=== PATIENT | male | born 1995 | race American Indian/Alaskan Native ===

== ENCOUNTER 2021-12-25 06:18 | Emergency (ER) | payer SELFPAY ==
[2021-12-25] MEDS ORDERED: ACETAMINOPHEN 325 MG TAB PO ONE (06:23)
[2021-12-25 08:08] VITALS: BP 110/77
[2021-12-25] MEDS ORDERED: IBUPROFEN 800 MG TAB PO ONE (08:23)
[2021-12-25 09:56] LABS: Bilirubin,Urine NEG (Negative); Blood,Urine LG (Negative); Color,Urine Amber (Yellow)
[2021-12-25] MEDS ORDERED: SODIUM CHLORIDE 0.9% 1000 ML 1,000 ML IV ONE (10:05)
[2021-12-25 10:09] LABS: Bacteria,Urine 2+ /HPF (Negative); Mucus,Urine FEW /HPF
[2021-12-25 10:12] LABS: WBC,Urine > 182.0 /HPF (0.0-6.0)
[2021-12-25 10:27] LABS: Hematocrit 40.1 % (35.5-45.6); Hemoglobin 13.5 gm/dl (11.8-15.2); Mean Corpuscular HGB Conc 34 % (32-34); Mean Corpuscular Volume 99 fl (84-94); Red Blood Count 4.05 M/mm3 (3.65-5.03); Red Cell Distribution Width 12.4 % (13.2-15.2)
--- NOTE | 2021-12-25 10:30 | XRay Report ---
CHEST 2 VIEWS INDICATION / CLINICAL INFORMATION: bodyache. Fever, cough COMPARISON: None available. FINDINGS: SUPPORT DEVICES: None. HEART / MEDIASTINUM: No significant abnormality. LUNGS / PLEURA: No significant pulmonary or pleural abnormality. No pneumothorax. ADDITIONAL FINDINGS: No significant additional findings. IMPRESSION: 1. No acute findings. Signer Name: Lyndon Prakash Jr, MD Signed: 12/25/2021 10:25 AM Workstation Name: [id number]
[2021-12-25 10:44] LABS: Platelet Count 125 K/mm3 (140-440)
[2021-12-25 10:50] LABS: Alanine Aminotransferase 22 units/L (7-56); BUN/Creatinine Ratio 10; Blood Urea Nitrogen 14 mg/dL (9-20); Calcium 8.9 mg/dL (8.4-10.2); Hemolysis Index 7
[2021-12-25] MEDS ORDERED: LIDOCAINE-MPF (1%) 10 MG/1 ML VIAL 5 ML INFILTRATI ONE (10:51)
--- NOTE | 2021-12-25 10:51 | Emergency Department Report ---
ED Fever HPI - General Chief Complaint: Fever Stated Complaint: BODY ACHES - History of Present Illness Initial Comments: 26-year-old male presents to the ED complaining of fever chills body ache x3 days. Patient states that when he went to the bathroom in the ED that he noticed some hematuria. Denies any penile discharge. He states some pelvis pain. He denies any prior medication. Patient is alert and oriented x3. No acute distress noted. No ill appearance noted. ED Review of Systems ROS: Stated complaint: BODY ACHES Other details as noted in HPI Constitutional: denies: chills, fever Eyes: denies: eye pain, eye discharge, vision change ENT: denies: ear pain, throat pain Respiratory: denies: cough, shortness of breath, wheezing Cardiovascular: denies: chest pain, palpitations Endocrine: no symptoms reported Gastrointestinal: denies: abdominal pain, nausea, diarrhea Genitourinary: denies: urgency, dysuria Musculoskeletal: denies: back pain, joint swelling, arthralgia Skin: denies: rash, lesions Neurological: denies: headache, weakness, paresthesias Psychiatric: denies: anxiety, depression Hematological/Lymphatic: denies: easy bleeding, easy bruising ED Past Medical Hx - Medications Home Medications: Home Medications Medication Instructions Recorded Confirmed Last Taken Type Dicyclomine [Bentyl] 20 mg PO QID 5 Days #20 tablet 12/25/21 Unknown Rx Ibuprofen [Motrin] 800 mg PO Q8HR PRN 15 Days #30 12/25/21 Unknown Rx tablet Promethazine [Phenergan] 25 mg PO Q6HR PRN 15 Days #30 tab 12/25/21 Unknown Rx levoFLOXacin [Levaquin] 750 mg PO QDAY 7 Days #7 tablet 12/25/21 Unknown Rx ED Physical Exam - General Limitations: No Limitations General appearance: alert, in no apparent distress - Head Head exam: Present: atraumatic, normocephalic - Eye Eye exam: Present: normal appearance - ENT ENT exam: Present: mucous membranes moist - Neck Neck exam: Present: normal inspection - Respiratory Respiratory exam: Present: normal lung sounds bilaterally. Absent: respiratory distress - Cardiovascular Cardiovascular Exam: Present: regular rate, normal rhythm. Absent: systolic murmur, diastolic murmur, rubs, gallop - GI/Abdominal GI/Abdominal exam: Present: soft, normal bowel sounds - Rectal Rectal exam: Present: deferred - Extremities Exam Extremities exam: Present: normal inspection - Back Exam Back exam: Present: normal inspection - Neurological Exam Neurological exam: Present: alert, oriented X3 - Psychiatric Psychiatric exam: Present: normal affect, normal mood - Skin Skin exam: Present: warm, dry, intact, normal color. Absent: rash ED Course Vital Signs 12/25/21 12/25/21 12/25/21 06:20 08:07 09:26 Temperature 102.9 F H 100.8 F H 100.4 F H Pulse Rate 115 H 96 H Respiratory 18 16 Rate Blood Pressure 128/67 Blood Pressure 110/77 [Left] O2 Sat by Pulse 100 100 Oximetry 12/25/21 12/25/21 10:20 14:17 Temperature 98.6 F 98.6 F Pulse Rate 90 Respiratory 16 Rate Blood Pressure Blood Pressure 110/77 [Left] O2 Sat by Pulse 100 Oximetry ED Medical Decision Making - Lab Data Result diagrams: 12/25/21 09:45 12/25/21 09:45 - Radiology Data [facility] [address] [place] [address] Cat Scan Report Signed Patient: JACQUELINE ROSARIO MR#: [id number] : 1995 Acct:[id number] Age/Sex: 26 / M ADM Date: 12/25/21 Loc: ED Attending Dr: Ordering Physician: PIA GEE Date of Service: 12/25/21 Procedure(s): CT abdomen pelvis wo/w con Accession Number(s): [id number] cc: PIA GEE CT ABDOMEN AND PELVIS WITHOUT AND WITH CONTRAST INDICATION: RRU quad pain and pelvis pain. TECHNIQUE: Axial CT images were obtained through the abdomen and pelvis before and after 100 cc Omni [address] scans at this location are performed using CT dose reduction for ALARA by means of automated exposure control. COMPARISON: None available. FINDINGS: LOWER CHEST: No significant abnormality. LIVER: No significant abnormality. GALLBLADDER: No significant abnormality. BILE DUCTS: No significant abnormality. PANCREAS: No significant abnormality. SPLEEN: No significant abnormality. ADRENALS: No significant abnormality. RIGHT KIDNEY and URETER: No significant abnormality. LEFT KIDNEY and URETER: No significant abnormality. STOMACH and SMALL BOWEL: No significant abnormality. COLON: No significant abnormality. APPENDIX: No significant abnormality. PERITONEUM: No free fluid. No free air. No fluid collection. LYMPH NODES: No significant adenopathy. AORTA and ARTERIES: No significant abnormality. IVC and VEINS: No significant abnormality. URINARY BLADDER: Moderately thickened urinary bladder wall. REPRODUCTIVE ORGANS: Peripherally enhancing hypodense lesion within the prostate worrisome for prostate abscess measuring 2.8 x 3.6 cm series 5 image 163 ADDITIONAL FINDINGS: None. SKELETAL SYSTEM: No significant abnormality. IMPRESSION: 1. Thick walled urinary bladder characteristic for cystitis. 2. Prostatitis with probable prostatic abscess. Signer Name: Tevin Richardson MD Signed: 12/25/2021 1:46 PM Workstation Name: [id number] Transcribed By: TL Dictated By: Tevin Richardson MD Electronically Authenticated By: Tevin Richardson MD Signed Date/Time: 12/25/21 1346 DD/ 1341 TD/TT: [place] [address] XRay Report Signed Patient: JACQUELINE ROSARIO MR#: [id number] : 1995 Acct:[id number] Age/Sex: 26 / M ADM Date: 12/25/21 Loc: ED Attending Dr: Ordering Physician: PIA GEE Date of Service: 12/25/21 Procedure(s): XR chest routine 2V Accession Number(s): [id number] cc: PIA GEE Fluoro Time In Minutes: CHEST 2 VIEWS INDICATION / CLINICAL INFORMATION: bodyache. Fever, cough COMPARISON: None available. FINDINGS: SUPPORT DEVICES: None. HEART / MEDIASTINUM: No significant abnormality. LUNGS / PLEURA: No significant pulmonary or pleural abnormality. No pneumothorax. ADDITIONAL FINDINGS: No significant additional findings. IMPRESSION: 1. No acute findings. Signer Name: Lyndon Prakash Jr, MD Signed: 12/25/2021 10:25 AM Workstation Name: [id number] Transcribed By: TTR Dictated By: LYNDON PRAKASH JR, MD Electronically Authenticated By: LYNDON PRAKASH JR, MD Signed Date/Time: 12/25/21 1025 DD/ 1025 TD/TT: - Medical Decision Making 26-year-old male presents to the ED complaining of fever chills body ache x3 days. Patient states that when he went to the bathroom in the ED that he noticed some hematuria. Denies any penile discharge. He states some pelvis pain. He denies any prior medication. Patient is alert and oriented x3. No acute distress noted. No ill appearance noted. Urinalysis pertinent for a urinary tract infection Rechecked the patient is resting quietly quietly and comfortable and feeling better. I discussed the results of diagnostic study, my clinical impression and the plan for further treatment with the patient. Patient agrees with plan and discharge at this present time. All question addressed. I have given the patient instruction regarding a diagnosis ,expectation ,follow- up and return precaution. I explained to the patient that emergent condition may arise and to return to the ED for new worsen and any new persisting condition. I have explained the importance of following up with the primary care physician or referral physician listed below has instructed. The patient verbalized understanding of discharge instruction. Abnormal Lab Results 12/25/21 12/25/21 12/25/21 09:42 09:45 09:45 WBC 10.4 RBC 4.05 Hgb 13.5 Hct 40.1 MCV 99 H MCH 33 H MCHC 34 RDW 12.4 L Plt Count 125 L Sodium 136 L Potassium 3.7 Chloride 97.4 L Carbon Dioxide 28 Anion Gap 14 BUN 14 Creatinine 1.4 H Estimated GFR > 60 BUN/Creatinine Ratio 10 Glucose 100 Calcium 8.9 Total Bilirubin 2.70 H AST 34 ALT 22 Alkaline Phosphatase 74 Total Protein 6.6 Albumin 4.0 Albumin/Globulin Ratio 1.5 Urine Color [place] Urine Turbidity Clear Urine pH 8.0 H Ur Specific [place] 1.016 Urine Protein 100 mg/dl Urine Glucose (UA) Neg Urine Ketones Neg Urine Blood Lg Urine Nitrite Neg Urine Bilirubin Neg Urine Urobilinogen 4.0 Ur Leukocyte Esterase Lg Urine WBC (Auto) > 182.0 H Urine RBC (Auto) 86.0 U Epithel Cells (Auto) 3.0 Urine Bacteria (Auto) 2+ Urine Mucus Few Urine Yeast (Budding) 3+ Critical care attestation.: If time is entered above; I have spent that time in minutes in the direct care of this critically ill patient, excluding procedure time. ED Disposition Clinical Impression: Acute urinary tract infection Disposition: 01 HOME / SELF CARE / HOMELESS Is pt being admited?: No Does the pt Need Aspirin: No Condition: Stable Instructions: Urinary Tract Infection, Adult, [id number], Antibiotic Medicine, Adult Additional Instructions: Take medication as prescribed Return to ED for any worsening Prescriptions: Dicyclomine [Bentyl] 20 mg PO QID 5 Days #20 tablet levoFLOXacin [Levaquin] 750 mg PO QDAY 7 Days #7 tablet Ibuprofen [Motrin] 800 mg PO Q8HR PRN 15 Days #30 tablet PRN Reason: Fever >101 Promethazine [Phenergan] 25 mg PO Q6HR PRN 15 Days #30 tab PRN Reason: Nausea Referrals: PRIMARY CARE, [Primary Care Provider] - 3-5 Days [facility] [Provider Group] - 3-5 Days Forms: Work/School Release Form(ED) Time of Disposition: 14:09
[2021-12-25] MEDS ORDERED: ONDANSETRON 4 MG/2 ML INJ IV ONE (10:52)
[2021-12-25] MEDS ORDERED: cefTRIAXone/NS 1 GM/50 ML 1 GM/50 ML BAG IV ONE (10:56)
--- NOTE | 2021-12-25 13:51 | Cat Scan Report ---
CT ABDOMEN AND PELVIS WITHOUT AND WITH CONTRAST INDICATION: RRU quad pain and pelvis pain. TECHNIQUE: Axial CT images were obtained through the abdomen and pelvis before and after 100 cc Omni 300 IV cont rast. All CT scans at this location are performed using CT dose reduction for ALARA by means of auto mated exposure control. COMPARISON: None available. FINDINGS: LOWER CHEST: No significant abnormality. LIVER: No significant abnormality. GALLBLADDER: No significant abnormality. BILE DUCTS: No significant abnormality. PANCREAS: No significant abnormality. SPLEEN: No significant abnormality. ADRENALS: No significant abnormality. RIGHT KIDNEY and URETER: No significant abnormality. LEFT KIDNEY and URETER: No significant abnormality. STOMACH and SMALL BOWEL: No significant abnormality. COLON: No significant abnormality. APPENDIX: No significant abnormality. PERITONEUM: No free fluid. No free air. No fluid collection. LYMPH NODES: No significant adenopathy. AORTA and ARTERIES: No significant abnormality. IVC and VEINS: No significant abnormality. URINARY BLADDER: Moderately thickened urinary bladder wall. REPRODUCTIVE ORGANS: Peripherally enhancing hypodense lesion within the prostate worrisome for prosta te abscess measuring 2.8 x 3.6 cm series 5 image 163 ADDITIONAL FINDINGS: None. SKELETAL SYSTEM: No significant abnormality. IMPRESSION: 1. Thick walled urinary bladder characteristic for cystitis. 2. Prostatitis with probable prostatic abscess. Signer Name: Tevin Richardson MD Signed: 12/25/2021 1:46 PM Workstation Name: [id number]
== END 2021-12-25 14:17 | disposition home or self-care (01) ==
LOC: ED 06:18
DX: N39.0 Urinary tract infection, site not specified (principal)
CPT/HCPCS: 36415; 71046; 74178; 80053; 81001; 85027; 96361; 96365; 99284; J0696; J2405; J7030; Q9967